=== PATIENT | female | born 1970 | race Two or more races ===

== ENCOUNTER 2018-04-26 09:08 | Outpatient (CLI) | payer OTHER | END 2018-04-26 09:17 | disposition home or self-care (01) | LOC: MAMO-SONO 09:08 | DX: Z12.31 Encounter for screening mammogram for malignant neoplasm of breast (principal) ==

== ENCOUNTER 2020-06-20 07:38 | Outpatient (CLI) | payer OTHER | END 2020-06-20 08:22 | disposition home or self-care (01) | LOC: MAMO-SONO 07:38 | PROVIDERS: ATTEND Obstetrics & Gynecology Maternal & Fetal Medicine | DX: Z12.31 Encounter for screening mammogram for malignant neoplasm of breast (principal) ==

== ENCOUNTER 2021-09-02 07:31 | Outpatient (CLI) | payer OTHER | END 2021-09-02 07:32 | disposition home or self-care (01) | LOC: MAMO-SONO 07:31 | PROVIDERS: ATTEND Obstetrics & Gynecology Maternal & Fetal Medicine | DX: Z12.31 Encounter for screening mammogram for malignant neoplasm of breast (principal); N63.0 Unspecified lump in unspecified breast; N64.4 Mastodynia; N60.11 Diffuse cystic mastopathy of right breast ==

== ENCOUNTER 2022-11-18 09:41 | Outpatient (CLI) | payer OTHER | END 2022-11-18 10:04 | disposition home or self-care (01) | LOC: MAMO-SONO 09:41 | PROVIDERS: ATTEND Obstetrics & Gynecology Maternal & Fetal Medicine | DX: Z12.31 Encounter for screening mammogram for malignant neoplasm of breast (principal); N63.0 Unspecified lump in unspecified breast; N64.4 Mastodynia; N60.11 Diffuse cystic mastopathy of right breast ==

== ENCOUNTER 2024-02-22 08:34 | Outpatient (CLI) | payer OTHER | END 2024-02-22 08:43 | disposition home or self-care (01) | LOC: MAMO-SONO 08:34 | PROVIDERS: ATTEND Obstetrics & Gynecology Maternal & Fetal Medicine | DX: N63 Unspecified lump in breast (principal); Z12.31 Encounter for screening mammogram for malignant neoplasm of breast; N64.4 Mastodynia; N60.11 Diffuse cystic mastopathy of right breast ==

== ENCOUNTER 2024-07-12 07:37 | Outpatient (CLI) | payer OTHER ==
[2024-07-12] MEDS ORDERED: DICLOFENAC SOD100 MG PO (12:26)
== END 2024-07-12 08:00 | disposition home or self-care (01) ==
LOC: RAD 07:37
DX: M12.06 Chronic postrheumatic arthropathy [Jaccoud], knee (principal)

== ENCOUNTER 2024-10-15 13:49 | Emergency (ER) | payer OTHER ==
[~2024-10-15] VITALS: Ht 162.6 cm; Wt 65.8 kg
[~2024-10-15 13:49] MED LIST: DICLOFENAC SOD100 MG PO
[2024-10-15] MEDS ORDERED: SERTRALINE HCL50 MG (14:30)
[2024-10-15] MEDS ORDERED: IBUPROFEN600 MG PO (19:07)
== END 2024-10-15 20:22 | disposition home or self-care (01) ==
LOC: ER 13:49
DX: S62.115A Nondisplaced fracture of triquetrum [cuneiform] bone, left wrist, initial encounter for closed fracture (principal); W10.8XXA Fall (on) (from) other stairs and steps, initial encounter; Y93.89 Activity, other specified; Y92.89 Other specified places as the place of occurrence of the external cause; Y99.9 Unspecified external cause status

== ENCOUNTER 2025-04-10 08:17 | Outpatient (CLI) | payer OTHER ==
[~2025-04-10 08:17] MED LIST changes: +IBUPROFEN600 MG PO; +SERTRALINE HCL50 MG
== END 2025-04-10 08:19 | disposition home or self-care (01) ==
LOC: MAMO-SONO 08:17
PROVIDERS: ATTEND Obstetrics & Gynecology Maternal & Fetal Medicine
DX: N63.0 Unspecified lump in unspecified breast (principal); N64.4 Mastodynia; N60.11 Diffuse cystic mastopathy of right breast; Z12.31 Encounter for screening mammogram for malignant neoplasm of breast